=== PATIENT | female | born 1985 ===

== ENCOUNTER 2024-09-03 13:53 | Outpatient (CLI) | payer OTHER ==
[~2024-09-03] VITALS: Ht 162.6 cm; Wt 85.7 kg
--- NOTE | 2024-09-08 13:59 | DVHSR ---
APPROVED REPORT Exam: Nuclear Stress Test Indication: Pre-Operative CV evaluation Ht: 5 ft 4 in Wt: 189 lbs BSA: 1.91 m2 HR: 74 bpm BP: 94/63 mmHg BMI: 32.43 Rhythm: NSR Medical History Medical History: Hypercholesterolemia, Chest pain, Abnormal EKG, Smoking Medications: Atorvastatin, Colace, Collagen, Vit D3, [place], Tramadol Allergies: Dilantin, Zofran, Phenobarbital Stress Test Details Stress Test: Exercise stress testing was performed using a Nikolay protocol. HR Resting HR: 74 bpmMax Heart Rate (APMHR): 179.136880 bpm Max HR Achieved: 153 bpmTarget HR (85% APMHR): 152.191937 bpm % of APMHR: 85.47 Recovery HR: 90 bpm HR response to stress: Normal HR response to stress BP Resting BP: 94/63 mmHg Max BP: 118/67 mmHg Recovery BP: 105/66 mmHg BP response to stress: Normal blood pressure response to stress. ECG Resting ECG: Sinus Rhythm Stress ECG: Sinus Tachycardia Arrhythmia: None Recovery ECG: Sinus Rhythm Clinical Reason for Termination: Fatigue Stress Symptoms: Fatigue Exercise duration: 5 min sec Exercise capacity: 7.0 METs Stress ECG Conclusion NON ISCHEMIC ECG RESPONSE NON ISCHEMIC CLINICAL RESPONSE NON ISCHEMIC CARDIOLITE STRESS LESS THAN 10% LIKELIHOOD OF STRESS INDUCED ISCHEMIA EF >55% NM EXAM: Myocardial Perfusion REST/STRESS Imaging Protocol: Rest Tc-99m/Stress Tc-99m 1 day Resting Data Rest SPECT myocardial perfusion imaging was performed in supine position 30 minutes following the int ravenous injection of 11 mCi of Tc-99m Sestamibi. Time of rest injection: 1404 Date: 09/03/2024 Time of rest imagin Date: 09/03/2024 Administration Route: IV Administration Site: Right AC Exercise Stress At peak stress, the patient was injected intravenously with 32.9 mCi of Tc-99m Sestamibi. Time of stress injection: 1502 Date: 09/03/2024 Time of stress imagin Date: 09/03/2024 Administration Route: IV Administration Site: Right AC Heart Rate at time of stress injection: 153 bpm. Patient continued to exercise for 0.5 minute(s). Gated Stress SPECT was performed 15 minutes after stress injection. The images were gated to evaluate regional wall motion and calculate left ventricular ejection fracti on. Comments Cardiolite injection at 4 minutes, 28 seconds into test. Study Data Post stress, the left ventricular ejection was 60%.. Nuclear Conclusion ECG Findings: negative for ischemia Clinical Findings: negative for ischemia Nuclear Findings: negative for ischemia Left Ventricular Function: normal NON ISCHEMIC ECG RESPONSE NON ISCHEMIC CLINICAL RESPONSE NON ISCHEMIC CARDIOLITE STRESS LESS THAN 10% LIKELIHOOD OF STRESS INDUCED ISCHEMIA EF >55%
== END 2024-09-03 17:00 | disposition home or self-care (01) ==
LOC: Rad HDHVI 13:53
PROVIDERS: ATTEND Internal Medicine Cardiovascular Disease
DX: Z01.810 Encounter for preprocedural cardiovascular examination (principal); I48.91 Unspecified atrial fibrillation; R00.0 Tachycardia, unspecified; R94.31 Abnormal electrocardiogram [ECG] [EKG]; R07.89 Other chest pain; E78.00 Pure hypercholesterolemia, unspecified; F17.210 Nicotine dependence, cigarettes, uncomplicated
CPT/HCPCS: 78452; 93017; A9500; 96374

== ENCOUNTER 2024-09-05 15:45 | Outpatient (CLI) | payer OTHER | END 2024-09-05 17:00 | disposition home or self-care (01) | LOC: Rad HDHVI 15:45 | PROVIDERS: ATTEND Internal Medicine Cardiovascular Disease | DX: Z01.810 Encounter for preprocedural cardiovascular examination (principal) | CPT/HCPCS: 93306 ==